=== PATIENT | male | born 1965 | race Caucasian/White ===

== ENCOUNTER 2017-07-27 20:22 | Inpatient (IN) | payer BC ==
[2017-07-27] MEDS ORDERED: methylPREDNISolone Sodium Succinate 125 MG/2 ML SDV IVPUSH ONE (20:45)
[2017-07-27] MEDS ORDERED: Sodium Chloride 0.9% 1,000 ML IV ONE (20:45)
[2017-07-27] MEDS ORDERED: Sodium Chloride 0.9% 10 ML Syringe FLUSH PRN (20:45)
[2017-07-27] MEDS ORDERED: Acetaminophen 500 MG Tab PO ONE (20:45)
[2017-07-27] MEDS ORDERED: Sodium Chloride 0.9% 2.5 ML Syringe FLUSH PRN (20:45)
[2017-07-27] MEDS ORDERED: Albuterol/Ipratropium 3.0-0.5 MG/3 ML Neb Soln NEB ONE (20:45)
--- NOTE | 2017-07-27 20:49 | EDM.PDOC ---
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 The patient says that he was treating his symptoms with his inhaler and he does have a nebulizer machine but it is at home in [place]. The patient says he has had pneumonia multiple times and has a "bad lung on the right". The patient still smokes cigarettes and says that he feels significant only worse starting today. Is been eating and drinking but admits he does drink a lot of caffeine. He has no cardiac history no chest pain per se but feels like he can't get much air and when he coughs it is very discomforting. The patient says he did get his flu shot this year. He has no leg pain or swelling. The patient did not take any medications for his fever Review of systems: As per history of present illness and below otherwise all systems reviewed and negative. Past medical history: As per history of present illness and as reviewed below otherwise noncontributory. Surgical history: As per history of present illness and as reviewed below otherwise noncontributory. Social history: No reported history of drug or alcohol abuse. Family history: As per history of present illness and as reviewed below otherwise noncontributory. Physical exam: General: Well-developed well-nourished male who is nontoxic and seems somewhat exaggerated with his breathing on my evaluation and vital signs were noted by me. HEENT: Atraumatic, normocephalic, pupils reactive, negative for conjunctival pallor or scleral icterus, mucous membranes tacky throat clear, neck supple, nontender, trachea midline. Lungs: Very diminished bilaterally with occasional wheezing and rhonchi heard at the bases but there is more diminished breath sounds in the left base. There is abdominal work of breathing and some breathlessness breath sounds equal bilaterally, chest nontender. Heart: S1S2, regular rate and rhythm no overt murmurs Abdomen: Soft, nondistended, nontender. Bowel sounds are hypoactive and there is some tympany on percussion but no rebound guarding or tenderness. Negative for masses or hepatosplenomegaly. Negative for costovertebral tenderness. Pelvis: Stable nontender. Genitourinary: Deferred. Rectal: Deferred. Extremities: Atraumatic, negative for cords or calf pain. Neurovascular unremarkable. No pedal edema Neuro: Awake, alert, oriented. Cranial nerves II through XII unremarkable. Cerebellum unremarkable. Motor and sensory unremarkable throughout. Exam nonfocal. Diagnostics: EKG CBC CMP lactic acid influenza chest x-ray blood cultures Therapeutics: IV O2 monitor DuoNeb Solu-Medrol Tylenol IV fluids Levaquin Reevaluation after the nebs and medications patient is moving air much better and is not exhibiting any wheezing but is still somewhat tight. He says he still feels short of breath with any activity. His fever has improved. I discussed with him testing results and will also give him a dose of Levaquin and talk to Dr. Thayer about observation for COPD exacerbation and early left pneumonia 2255: Case was discussed with Dr. Thayer who agrees for observation admission Impression: COPD exacerbation/early left pneumonia Definitive disposition and diagnosis as appropriate pending reevaluation and review of above generalized Pain Score (Numeric/FACES): 8 - Related Data Allergies Allergy/AdvReac Type Severity Reaction Status Date / Time hydrocodone Allergy Other Verified 07/27/17 20:37 Home Meds: Home Meds Budesonide/Formoterol Fumarate [Symbicort 160-4.5 Mcg Inhaler] 1 puff IH DAILY 07/27/17 [History] FLUoxetine [PROzac] 40 mg PO DAILY 07/27/17 [History] Fluticasone Propionate [Flonase Allergy Relief] 9.9 ml NS DAILY 07/27/17 [ History] Fluticasone/Vilanterol [Breo Ellipta 100-25 MCG Inhalation Kit] 1 each IH DAILY 07/27/17 [History] Lisinopril 20 mg PO DAILY 07/27/17 [History] ED ROS GENERAL - Review of Systems Review Of Systems: ROS reveals no pertinent complaints other than HPI. ED EXAM, GENERAL - Physical Exam Exam: See Below (See dictation) Course - Vital Signs Last Recorded V/S: Last Vital Signs Temp 36.9 C 07/27/17 22:56 Pulse 84 04/05/18 22:56 Resp 20 07/27/17 22:56 BP 113/52 L 07/27/17 22:56 Pulse Ox 97 07/27/17 22:56 - Orders/Labs/Meds Orders: Active Orders 24 hr Category Date Time Status Patient Status [ADT] Stat ADT 07/27/17 23:02 Ordered Cardiac Monitoring [RC] . DIRECTED Care 07/27/17 20:45 Active EKG Documentation Completion [RC] STAT Care 07/27/17 20:45 Active Oxygen Therapy, ED [RC] ASDIRECTED Care 07/27/17 20:45 Active Pulse Oximetry [RC] ASDIRECTED Care 07/27/17 20:45 Active RT Aerosol Therapy [RC] ASDIRECTED Care 07/27/17 20:46 Active Chest 1V Frontal [CR] Stat Exams 07/27/17 20:45 Taken CULTURE BLOOD [BC] Stat Lab 07/27/17 20:54 Received CULTURE BLOOD [BC] Stat Lab 07/27/17 21:15 Received INFLUENZA A+B AG SCREEN [RM] Stat Lab 07/27/17 21:20 Ordered Levofloxacin/Dextrose 5%-Water [Levaquin in D5W 750 MG/ Med 07/27/17 22:48 Active 150 ML] 750 mg Premix Bag 1 bag IV ONETIME Sodium Chloride 0.9% [Saline Flush] Med 07/27/17 20:45 Active 10 ml FLUSH ASDIRECTED PRN Sodium Chloride 0.9% [Saline Flush] Med 07/27/17 20:45 Active 2.5 ml FLUSH ASDIRECTED PRN Blood Culture x2 Reflex Set [OM.PC] Stat Oth 07/27/17 20:45 Ordered Saline Lock Insert [OM.PC] Stat Oth 07/27/17 20:45 Ordered Medication Orders Levofloxacin/Dextrose 750 mg/ (Premix) 150 mls @ 100 mls/hr IV ONETIME ONE Stop: 07/28/17 00:17 Last Admin: 07/27/17 22:58 Dose: 100 mls/hr Sodium Chloride (Saline Flush) 10 ml FLUSH ASDIRECTED PRN PRN Reason: Keep Vein Open Sodium Chloride (Saline Flush) 2.5 ml FLUSH ASDIRECTED PRN PRN Reason: Keep Vein Open Labs: Laboratory Tests 0407/27/17 07/27/17 Range/Units 20:54 20:54 20:54 WBC 16.08 H (4.0-11.0) K/uL RBC 4.36 L (4.50-5.90) M/uL Hgb 13.7 (13.0-17.0) g/dL Hct 40.1 (38.0-50.0) % MCV 92.0 (80.0-98.0) fL MCH 31.4 (27.0-32.0) pg MCHC 34.2 (31.0-37.0) g/dL RDW Std Deviation 47.5 (28.0-62.0) fl RDW Coeff of Danny 14 (11.0-15.0) % Plt Count 209 (150-400) K/uL MPV 11.00 (7.40-12.00) fL Neut % (Auto) 80.2 H (48.0-80.0) % Lymph % (Auto) 10.3 L (16.0-40.0) % [place] % (Auto) 9.0 (0.0-15.0) % Eos % (Auto) 0.4 (0.0-7.0) % Baso % (Auto) 0.1 (0.0-1.5) % Neut # (Auto) 12.9 H (1.4-5.7) K/uL Lymph # (Auto) 1.7 (0.6-2.4) K/uL [place] # (Auto) 1.5 H (0.0-0.8) K/uL Eos # (Auto) 0.1 (0.0-0.7) K/uL Baso # (Auto) 0.0 (0.0-0.1) K/uL Nucleated RBC % 0.0 /100WBC Nucleated RBCs # 0 K/uL Lactate 1.6 (0.20-2.00) mmol/L Sodium 137 (136-148) mmol/L Potassium 3.8 (3.5-5.1) mmol/L Chloride 104 (98-107) mmol/L Carbon Dioxide 21.5 (21.0-32.0) mmol/L BUN 14 (7.0-18.0) mg/dL Creatinine 1.2 (0.8-1.3) mg/dL Est Cr Clr Drug Dosing TNP Estimated GFR (MDRD) > 60.0 ml/min Glucose 115 H (74-106) mg/dL Calcium 9.0 (8.5-10.1) mg/dL Total Bilirubin 0.4 (0.2-1.0) mg/dL AST 23 (15-37) IU/L ALT 24 (14-63) IU/L Alkaline Phosphatase 73 (46-116) U/L Total Protein 7.2 (6.4-8.2) g/dL Albumin 3.4 (3.4-5.0) g/dL Globulin 3.8 H (2.0-3.5) g/dL Albumin/Globulin Ratio 0.9 L (1.3-2.8) Meds: Medications Generic Name Dose Route Start Last Admin Trade Name Freq PRN Reason Stop Dose Admin Levofloxacin/Dextrose 750 mg/ 150 mls @ 100 mls/hr 07/27/17 22:48 07/27/17 22 :58 Premix IV 07/28/17 00:17 100 mls/hr ONETIME ONE Administration Sodium Chloride 10 ml 07/27/17 20:45 Saline Flush FLUSH ASDIRECTED PRN Keep Vein Open Sodium Chloride 2.5 ml 07/27/17 20:45 Saline Flush FLUSH ASDIRECTED PRN Keep Vein Open Discontinued Medications Generic Name Dose Route Start Last Admin Trade Name Hieuq PRN Reason Stop Dose Admin Acetaminophen 1,000 mg 07/27/17 20:45 07/27/17 21:20 Tylenol Extra Strength PO 07/27/17 20:46 1,000 mg ONETIME ONE Administration Albuterol/Ipratropium 3 ml 07/27/17 20:45 07/27/17 21:20 Duoneb 3.0-0.5 Mg/3 Ml NEB 07/27/17 20:46 3 ml ONETIME ONE Administration Sodium Chloride 1,000 mls @ 999 mls/hr 07/27/17 20:45 07/27/17 21:19 Normal Saline IV 07/27/17 21:45 999 mls/hr STAT ONE Administration Methylprednisolone Sodium Succinate 125 mg 07/27/17 20:45 07/27/17 21:20 Solu-Medrol IVPUSH 07/27/17 20:46 125 mg ONETIME ONE Administration Departure - Departure Time of Disposition: 23:04 Disposition: Refer to Observation Condition: Good Clinical Impression: COPD exacerbation, Pneumonia - Discharge Information Referrals: PCP,None [Primary Care Provider] - Forms: ED Department Discharge - My Orders Last 24 Hours: My Active Orders 07/27/17 20:45 Cardiac Monitoring [RC] . DIRECTED EKG Documentation Completion [RC] STAT Oxygen Therapy, ED [RC] ASDIRECTED Pulse Oximetry [RC] ASDIRECTED Chest 1V Frontal [CR] Stat Sodium Chloride 0.9% [Saline Flush] 10 ml FLUSH ASDIRECTED PRN Sodium Chloride 0.9% [Saline Flush] 2.5 ml FLUSH ASDIRECTED PRN Blood Culture x2 Reflex Set [OM.PC] Stat Saline Lock Insert [OM.PC] Stat 07/27/17 20:46 RT Aerosol Therapy [RC] ASDIRECTED 07/27/17 20:54 CULTURE BLOOD [BC] Stat 07/27/17 21:15 CULTURE BLOOD [BC] Stat 07/27/17 21:20 INFLUENZA A+B AG SCREEN [RM] Stat 07/27/17 22:48 Levofloxacin/Dextrose 5%-Water [Levaquin in D5W 750 MG/150 ML] 750 mg Premix Bag 1 bag IV ONETIME 07/27/17 23:02 Patient Status [ADT] Stat - Assessment/Plan Last 24 Hours: My Active Orders 07/27/17 20:45 Cardiac Monitoring [RC] . DIRECTED EKG Documentation Completion [RC] STAT Oxygen Therapy, ED [RC] ASDIRECTED Pulse Oximetry [RC] ASDIRECTED Chest 1V Frontal [CR] Stat Sodium Chloride 0.9% [Saline Flush] 10 ml FLUSH ASDIRECTED PRN Sodium Chloride 0.9% [Saline Flush] 2.5 ml FLUSH ASDIRECTED PRN Blood Culture x2 Reflex Set [OM.PC] Stat Saline Lock Insert [OM.PC] Stat 07/27/17 20:46 RT Aerosol Therapy [RC] ASDIRECTED 07/27/17 20:54 CULTURE BLOOD [BC] Stat 07/27/17 21:15 CULTURE BLOOD [BC] Stat 07/27/17 21:20 INFLUENZA A+B AG SCREEN [RM] Stat 07/27/17 22:48 Levofloxacin/Dextrose 5%-Water [Levaquin in D5W 750 MG/150 ML] 750 mg Premix Bag 1 bag IV ONETIME 07/27/17 23:02 Patient Status [ADT] Stat
[2017-07-27 21:26] LABS: CHLORIDE,CL 104 mmol/L (98-107); SODIUM,NA 137 mmol/L (136-148)
[2017-07-27] MEDS ORDERED: Levofloxacin/Dextrose 5%-Water 750 MG in Premix Bag 1 BAG IV ONE (22:48)
--- NOTE | 2017-07-27 23:28 | PCM.HP ---
H&P History of Present Illness - General Admit Problem/Dx: Admission Diagnosis/Problem Admission Diagnosis/Problem Pneumonia - History of Present Illness Initial Comments - Free Text/Narative: 52 yo male smoker who presents with several week history of sinus congestion and several day history of chest congestion. He has a one day history of subjective fevers and chills. generalized Pain Score (Numeric/FACES): 8 - Related Data Allergies/Adverse Reactions: Allergies Allergy/AdvReac Type Severity Reaction Status Date / Time hydrocodone Allergy Other Verified 07/27/17 20:37 Home Medications: Home Meds Budesonide/Formoterol Fumarate [Symbicort 160-4.5 Mcg Inhaler] 1 puff IH DAILY 07/27/17 [History] FLUoxetine [PROzac] 40 mg PO DAILY 07/27/17 [History] Fluticasone Propionate [Flonase Allergy Relief] 9.9 ml NS DAILY 07/27/17 [ History] Fluticasone/Vilanterol [Breo Ellipta 100-25 MCG Inhalation Kit] 1 each IH DAILY 07/27/17 [History] Lisinopril 20 mg PO DAILY 07/27/17 [History] Past Medical History HEENT History: Reports: None Cardiovascular History: Reports: Hypertension Respiratory History: Reports: COPD, Pneumonia, Recurrent Gastrointestinal History: Reports: None Genitourinary History: Reports: None Musculoskeletal History: Reports: None Neurological History: Reports: None Psychiatric History: Reports: Anxiety, Depression Endocrine/Metabolic History: Reports: None Hematologic History: Reports: None Immunologic History: Reports: None Oncologic (Cancer) History: Reports: None Dermatologic History: Reports: None - Infectious Disease History Infectious Disease History: Reports: None - Past Surgical History Head Surgeries/Procedures: Reports: None Musculoskeletal Surgical History: Reports: Other (See Below) Other Musculoskeletal Surgeries/Procedures:: knee surgery Social & Family History - Family History Family Medical History: Noncontributory - Tobacco Use Smoking Status *Q: Current Every Day Smoker Years of Tobacco use: 36 Packs/Tins Daily: 1 - Caffeine Use Caffeine Use: Reports: Coffee - Recreational Drug Use Recreational Drug Use: No H&P Review of Systems - Review of Systems: Review Of Systems: ROS reveals no pertinent complaints other than HPI. Exam - Exam Exam: See Below - Vital Signs Vital Signs: Last Vital Signs Temp 36.9 C 07/27/17 22:56 Pulse 84 07/27/17 22:56 Resp 20 07/27/17 22:56 BP 113/52 L 07/27/17 22:56 Pulse Ox 97 07/27/17 22:56 Weight: 89.358 kg - Exam General: Alert, Oriented HEENT: Mucosa Moist & [place] Neck: Supple, Trachea Midline Lungs: Clear to Auscultation, Normal Respiratory Effort Cardiovascular: Regular Rate, Regular Rhythm GI/Abdominal Exam: Normal Bowel Sounds, Soft, Non-Tender Extremities: Normal Range of Motion, Non-Tender Skin: Warm, Dry, Intact - Patient Data Lab Results Last 24 hrs: Laboratory Results - last 24 hr 07/27/17 07/27/17 07/27/17 Range/Units 20:54 20:54 20:54 WBC 16.08 H (4.0-11.0) K/uL RBC 4.36 L (4.50-5.90) M/uL Hgb 13.7 (13.0-17.0) g/dL Hct 40.1 (38.0-50.0) % MCV 92.0 (80.0-98.0) fL MCH 31.4 (27.0-32.0) pg MCHC 34.2 (31.0-37.0) g/dL RDW Std Deviation 47.5 (28.0-62.0) fl RDW Coeff of Danny 14 (11.0-15.0) % Plt Count 209 (150-400) K/uL MPV 11.00 (7.40-12.00) fL Neut % (Auto) 80.2 H (48.0-80.0) % Lymph % (Auto) 10.3 L (16.0-40.0) % [place] % (Auto) 9.0 (0.0-15.0) % Eos % (Auto) 0.4 (0.0-7.0) % Baso % (Auto) 0.1 (0.0-1.5) % Neut # (Auto) 12.9 H (1.4-5.7) K/uL Lymph # (Auto) 1.7 (0.6-2.4) K/uL [place] # (Auto) 1.5 H (0.0-0.8) K/uL Eos # (Auto) 0.1 (0.0-0.7) K/uL Baso # (Auto) 0.0 (0.0-0.1) K/uL Nucleated RBC % 0.0 /100WBC Nucleated RBCs # 0 K/uL Lactate 1.6 (0.20-2.00) mmol/L Sodium 137 (136-148) mmol/L Potassium 3.8 (3.5-5.1) mmol/L Chloride 104 (98-107) mmol/L Carbon Dioxide 21.5 (21.0-32.0) mmol/L BUN 14 (7.0-18.0) mg/dL Creatinine 1.2 (0.8-1.3) mg/dL Est Cr Clr Drug Dosing TNP Estimated GFR (MDRD) > 60.0 ml/min Glucose 115 H (74-106) mg/dL Calcium 9.0 (8.5-10.1) mg/dL Total Bilirubin 0.4 (0.2-1.0) mg/dL AST 23 (15-37) IU/L ALT 24 (14-63) IU/L Alkaline Phosphatase 73 (46-116) U/L Total Protein 7.2 (6.4-8.2) g/dL Albumin 3.4 (3.4-5.0) g/dL Globulin 3.8 H (2.0-3.5) g/dL Albumin/Globulin Ratio 0.9 L (1.3-2.8) Result Diagrams: 07/27/17 20:54 07/27/17 20:54 [place] Results Last 24 hrs: Microbiology 07/27/17 21:20 Influenza Type A Antigen Screen - Final Nasopharyngeal Swab NEGATIVE INFLUENZA A VIRUS AG Influenza Type B Antigen Screen - Final NEGATIVE INFLUENZA B VIRUS AG Imaging Impressions Last 24 hrs: CXR: left perihilar infiltrates Problem List Initiated/Reviewed/Updated: Yes Orders Last 24hrs: Active Orders 24 hr Category Date Time Status Patient Status [ADT] Routine ADT 07/27/17 23:16 Ordered Cardiac Monitoring [RC] . DIRECTED Care 07/27/17 20:45 Active EKG Documentation Completion [RC] STAT Care 07/27/17 20:45 Active Oxygen Therapy [RC] PRN Care 07/27/17 23:16 Ordered Oxygen Therapy, ED [RC] ASDIRECTED Care 07/27/17 20:45 Active Pulse Oximetry [RC] ASDIRECTED Care 07/27/17 20:45 Active RT Aerosol Therapy [RC] ASDIRECTED Care 07/27/17 20:46 Active RT Aerosol Therapy [RC] ASDIRECTED Care 07/27/17 23:17 Ordered Up ad Cora [RC] ASDIRECTED Care 07/27/17 23:16 Ordered VTE/DVT Education [RC] PER UNIT ROUTINE Care 07/27/17 23:16 Ordered Vital Signs [RC] Q4H Care 07/27/17 23:16 Ordered Regular Diet [DIET] Diet 07/27/17 Breakfast Ordered Chest 1V Frontal [CR] Stat Exams 07/27/17 20:45 Taken BASIC METABOLIC PANEL,BMP [CHEM] AM Lab 07/28/17 05:11 Ordered CBC WITH AUTO DIFF [HEME] AM Lab 07/28/17 05:11 Ordered CULTURE BLOOD [BC] Stat Lab 07/27/17 20:54 Received CULTURE BLOOD [BC] Stat Lab 07/27/17 21:15 Received CULTURE SPUTUM + SMEAR [RM] Routine Lab 07/27/17 23:20 Ordered INFLUENZA A+B AG SCREEN [RM] Stat Lab 07/27/17 21:20 Ordered Acetaminophen [Tylenol] Med 07/27/17 23:16 Ordered 650 mg PO Q4H PRN Albuterol/Ipratropium [DuoNeb 3.0-0.5 MG/3 ML] Med 07/27/17 23:16 Ordered 3 ml NEB Q4HRRT PRN Levofloxacin/Dextrose 5%-Water [Levaquin in D5W 750 MG/ Med 07/27/17 22:48 Active 150 ML] 750 mg Premix Bag 1 bag IV ONETIME Levofloxacin/Dextrose 5%-Water [Levaquin in D5W 750 MG/ Med 07/28/17 23:30 Ordered 150 ML] 750 mg Premix Bag 1 bag IV Q24H Sodium Chloride 0.9% @ 125 MLS/HR (1000ml) Med 07/27/17 23:30 Ordered Sodium Chloride 0.9% [Normal Saline] 1,000 ml IV ASDIRECTED Sodium Chloride 0.9% [Saline Flush] Med 07/27/17 20:45 Active 10 ml FLUSH ASDIRECTED PRN Sodium Chloride 0.9% [Saline Flush] Med 07/27/17 20:45 Active 2.5 ml FLUSH ASDIRECTED PRN Blood Culture x2 Reflex Set [OM.PC] Stat Oth 07/27/17 20:45 Ordered Saline Lock Insert [OM.PC] Stat Oth 07/27/17 20:45 Ordered Sequential Compression Device [OM.PC] Per Unit Routine Oth 07/27/17 23:16 Ordered Resuscitation Status Routine Resus Stat 07/27/17 23:16 Ordered Medication Orders Levofloxacin/Dextrose 750 mg/ (Premix) 150 mls @ 100 mls/hr IV ONETIME ONE Stop: 07/28/17 00:17 Last Admin: 07/27/17 22:58 Dose: 100 mls/hr Sodium Chloride (Saline Flush) 10 ml FLUSH ASDIRECTED PRN PRN Reason: Keep Vein Open Sodium Chloride (Saline Flush) 2.5 ml FLUSH ASDIRECTED PRN PRN Reason: Keep Vein Open Assessment/Plan Comment:: 52 yo male admitted for community acquired pneumonia. We will treat with Levaquin and duonebs for reactive airway disease. Cultures are pending.
[2017-07-27] MEDS ORDERED: Sodium Chloride 0.9% 1,000 ML IV SCH (23:30)
[2017-07-28] MEDS: Acetaminophen 325 MG Tab PO PRN ×2 (00:52→15:18)
[2017-07-28] MEDS: Enoxaparin 40 MG/0.4 ML Syringe SUBCUT SCH ×2 (00:52→23:07)
[2017-07-28] MEDS: Albuterol/Ipratropium 3.0-0.5 MG/3 ML Neb Soln NEB PRN ×2 (04:10→15:15)
[2017-07-28 05:42] LABS: CHLORIDE,CL 106 mmol/L (98-107); SODIUM,NA 138 mmol/L (136-148)
[2017-07-28] MEDS: FLUoxetine 20 MG Cap PO SCH (08:47)
[2017-07-28] MEDS: Lisinopril 10 MG Tab PO SCH (08:48)
[2017-07-28] MEDS ORDERED: [UNRECOGNIZED DRUG - REMARK] NS SCH (09:00)
[2017-07-28] MEDS: FLUTICASONE INH SCH (09:29)
[2017-07-28] MEDS: VILANTEROL INH SCH (09:29)
[2017-07-28] MEDS: Budesonide/Formoterol Fumarate [Symbicort 160-4.5 Mcg Inh INH SCH (09:29)
--- NOTE | 2017-07-28 10:07 | PCM.PN ---
- General Info Date of Service: 07/28/17 Admission Dx/Problem (Free Text): Admission Diagnosis/Problem Admission Diagnosis/Problem Pneumonia Subjective Update: Feeling a little better this morning. Dyspnea has improved. No chest pain. Cough continues, but is non productive. No other complaints. Functional Status: Reports: Pain Controlled, Tolerating Diet, Ambulating, Urinating - Review of Systems General: Reports: Malaise. Denies: Fever HEENT: Reports: Sinus Congestion Pulmonary: Reports: Shortness of Breath (intermittent, but improved.), Cough. Denies: Sputum Cardiovascular: Reports: No Symptoms. Denies: Chest Pain, Palpitations, Orthopnea, Edema Gastrointestinal: Reports: No Symptoms. Denies: Abdominal Pain, Nausea, Vomiting Genitourinary: Reports: No Symptoms. Denies: Dysuria, Frequency, Burning Musculoskeletal: Reports: No Symptoms Skin: Reports: No Symptoms Neurological: Reports: No Symptoms Psychiatric: Reports: No Symptoms - Patient Data Vitals - Most Recent: Last Vital Signs Temp 97.9 F 07/28/17 04:00 Pulse 83 07/28/17 04:00 Resp 18 07/28/17 04:00 BP 135/68 07/28/17 08:48 Pulse Ox 99 07/28/17 04:00 Weight - Most Recent: 95.209 kg I&O - Last 24 Hours: Intake & Output 07/27/17 07/28/17 07/28/17 22:59 06:59 14:59 Intake Total 300 Output Total 950 Balance -650 Lab Results Last 24 Hours: Laboratory Results - last 24 hr 07/27/17 07/27/17 07/27/17 Range/Units 20:54 20:54 20:54 WBC 16.08 H (4.0-11.0) K/uL RBC 4.36 L (4.50-5.90) M/uL Hgb 13.7 (13.0-17.0) g/dL Hct 40.1 (38.0-50.0) % MCV 92.0 (80.0-98.0) fL MCH 31.4 (27.0-32.0) pg MCHC 34.2 (31.0-37.0) g/dL RDW Std Deviation 47.5 (28.0-62.0) fl RDW Coeff of Danny 14 (11.0-15.0) % Plt Count 209 (150-400) K/uL MPV 11.00 (7.40-12.00) fL Neut % (Auto) 80.2 H (48.0-80.0) % Lymph % (Auto) 10.3 L (16.0-40.0) % [place] % (Auto) 9.0 (0.0-15.0) % Eos % (Auto) 0.4 (0.0-7.0) % Baso % (Auto) 0.1 (0.0-1.5) % Neut # (Auto) 12.9 H (1.4-5.7) K/uL Lymph # (Auto) 1.7 (0.6-2.4) K/uL [place]ble # (Auto) 1.5 H (0.0-0.8) K/uL Eos # (Auto) 0.1 (0.0-0.7) K/uL Baso # (Auto) 0.0 (0.0-0.1) K/uL Nucleated RBC % 0.0 /100WBC Nucleated RBCs # 0 K/uL Lactate 1.6 (0.20-2.00) mmol/L Sodium 137 (136-148) mmol/L Potassium 3.8 (3.5-5.1) mmol/L Chloride 104 (98-107) mmol/L Carbon Dioxide 21.5 (21.0-32.0) mmol/L BUN 14 (7.0-18.0) mg/dL Creatinine 1.2 (0.8-1.3) mg/dL Est Cr Clr Drug Dosing TNP Estimated GFR (MDRD) > 60.0 ml/min Glucose 115 H (74-106) mg/dL Calcium 9.0 (8.5-10.1) mg/dL Total Bilirubin 0.4 (0.2-1.0) mg/dL AST 23 (15-37) IU/L ALT 24 (14-63) IU/L Alkaline Phosphatase 73 (46-116) U/L Total Protein 7.2 (6.4-8.2) g/dL Albumin 3.4 (3.4-5.0) g/dL Globulin 3.8 H (2.0-3.5) g/dL Albumin/Globulin Ratio 0.9 L (1.3-2.8) 07/28/17 07/28/17 Range/Units 04:37 04:37 WBC 13.65 H (4.0-11.0) K/uL RBC 4.25 L (4.50-5.90) M/uL Hgb 13.4 (13.0-17.0) g/dL Hct 39.6 (38.0-50.0) % MCV 93.2 (80.0-98.0) fL MCH 31.5 (27.0-32.0) pg MCHC 33.8 (31.0-37.0) g/dL RDW Std Deviation 48.4 (28.0-62.0) fl RDW Coeff of Danny 14 (11.0-15.0) % Plt Count 195 (150-400) K/uL MPV 11.60 (7.40-12.00) fL Neut % (Auto) 92.2 H (48.0-80.0) % Lymph % (Auto) 6.4 L (16.0-40.0) % [place] % (Auto) 1.4 (0.0-15.0) % Eos % (Auto) 0.0 (0.0-7.0) % Baso % (Auto) 0.0 (0.0-1.5) % Neut # (Auto) 12.6 H (1.4-5.7) K/uL Lymph # (Auto) 0.9 (0.6-2.4) K/uL [place] # (Auto) 0.2 (0.0-0.8) K/uL Eos # (Auto) 0.0 (0.0-0.7) K/uL Baso # (Auto) 0.0 (0.0-0.1) K/uL Nucleated RBC % 0.0 /100WBC Nucleated RBCs # 0 K/uL Lactate (0.20-2.00) mmol/L Sodium 138 (136-148) mmol/L Potassium 4.2 (3.5-5.1) mmol/L Chloride 106 (98-107) mmol/L Carbon Dioxide 21.4 (21.0-32.0) mmol/L BUN 12 (7.0-18.0) mg/dL Creatinine 1.2 (0.8-1.3) mg/dL Est Cr Clr Drug Dosing 78.25 Estimated GFR (MDRD) > 60.0 ml/min Glucose 182 H (74-106) mg/dL Calcium 8.6 (8.5-10.1) mg/dL Total Bilirubin (0.2-1.0) mg/dL AST (15-37) IU/L ALT (14-63) IU/L Alkaline Phosphatase (46-116) U/L Total Protein (6.4-8.2) g/dL Albumin (3.4-5.0) g/dL Globulin (2.0-3.5) g/dL Albumin/Globulin Ratio (1.3-2.8) Davie Results Last 24 Hours: Microbiology 07/27/17 21:20 Influenza Type A Antigen Screen - Final Nasopharyngeal Swab NEGATIVE INFLUENZA A VIRUS AG Influenza Type B Antigen Screen - Final NEGATIVE INFLUENZA B VIRUS AG Med Orders - Current: Current Medications Acetaminophen (Tylenol) 650 mg PO Q4H PRN PRN Reason: Pain (Mild 1-3)/fever Last Admin: 07/28/17 00:52 Dose: 650 mg Albuterol/Ipratropium (Duoneb 3.0-0.5 Mg/3 Ml) 3 ml NEB Q4HRRT PRN PRN Reason: Shortness Of Breath/wheezing Last Admin: 07/28/17 04:10 Dose: 3 ml Enoxaparin Sodium (Lovenox) 40 mg SUBCUT Q24H [facility] Last Admin: 07/28/17 00:52 Dose: 40 mg Fluoxetine HCl (Prozac) 40 mg PO DAILY [facility] Last Admin: 07/28/17 08:47 Dose: 40 mg Levofloxacin/Dextrose 750 mg/ (Premix) 150 mls @ 100 mls/hr IV Q24H [facility] Lisinopril (Prinivil) 20 mg PO DAILY [facility] Last Admin: 07/28/17 08:48 Dose: 20 mg Non-Formulary Medication (Fluticasone Propionate [Flonase Allergy Relief]) 9.9 ml NS DAILY [facility] Budesonide/Formoterol Fumarate [Symbicort 160-4.5 Mcg Inh 0 each INH DAILY [facility]AN[facility] Last Admin: 07/28/17 09:29 Dose: 2 each Fluticasone/Vilanterol (Breo Ellipta) 0 each INH DAILY [facility] Last Admin: 07/28/17 09:29 Dose: 1 each Sodium Chloride (Saline Flush) 10 ml FLUSH ASDIRECTED PRN PRN Reason: Keep Vein Open Sodium Chloride (Saline Flush) 2.5 ml FLUSH ASDIRECTED PRN PRN Reason: Keep Vein Open Discontinued Medications Acetaminophen (Tylenol Extra Strength) 1,000 mg PO ONETIME ONE Stop: 07/27/17 20:46 Last Admin: 07/27/17 21:20 Dose: 1,000 mg Albuterol/Ipratropium (Duoneb 3.0-0.5 Mg/3 Ml) 3 ml NEB ONETIME ONE Stop: 07/27/17 20:46 Last Admin: 07/27/17 21:20 Dose: 3 ml Sodium Chloride (Normal Saline) 1,000 mls @ 999 mls/hr IV STAT ONE Stop: 07/27/17 21:45 Last Admin: 07/27/17 21:19 Dose: 999 mls/hr Levofloxacin/Dextrose 750 mg/ (Premix) 150 mls @ 100 mls/hr IV ONETIME ONE Stop: 07/28/17 00:17 Last Admin: 07/27/17 22:58 Dose: 100 mls/hr Sodium Chloride (Normal Saline) 1,000 mls @ 125 mls/hr IV ASDIRECTED [facility]AN[facility]EP Last Admin: 07/28/17 00:55 Dose: 125 mls/hr Methylprednisolone Sodium Succinate (Solu-Medrol) 125 mg IVPUSH ONETIME ONE Stop: 07/27/17 20:46 Last Admin: 07/27/17 21:20 Dose: 125 mg - Exam Quality Assessment: Supplemental Oxygen, DVT Prophylaxis General: Alert, Oriented, Cooperative, No Acute Distress Neck: Supple Lungs: Clear to Auscultation, Normal Respiratory Effort. No: Wheezing Cardiovascular: Regular Rate, Regular Rhythm GI/Abdominal Exam: Normal Bowel Sounds, Soft, Non-Tender, No Organomegaly, No Distention, No Abnormal Bruit, No Mass, Pelvis Stable Back Exam: Normal Inspection, Full Range of Motion Extremities: Normal Inspection, Normal Range of Motion, Non-Tender, No Pedal Edema, Normal Capillary Refill Neurological: No New Focal Deficit Psy/Mental Status: Alert, Normal Affect, Normal Mood - Problem List & Annotations (1) Pneumonia SNOMED Code(s): 751568536 Code(s): J18.9 - PNEUMONIA, UNSPECIFIED ORGANISM Status: Acute Current Visit: Yes Qualifiers: Pneumonia type: due to unspecified organism Laterality: left (2) Reactive airway disease with acute exacerbation SNOMED Code(s): 586402850256 Code(s): J45.901 - UNSPECIFIED ASTHMA WITH (ACUTE) EXACERBATION Status: Acute Current Visit: Yes Qualifiers: Asthma severity: mild Asthma persistence: persistent Qualified Code(s): J45.31 - Mild persistent asthma with (acute) exacerbation (3) HTN (hypertension) SNOMED Code(s): 80734537 Code(s): I10 - ESSENTIAL (PRIMARY) HYPERTENSION Status: Chronic Current Visit: Yes Qualifiers: Hypertension type: essential hypertension Qualified Code(s): I10 - Essential (primary) hypertension - Problem List Review Problem List Initiated/Reviewed/Updated: Yes - My Orders Last 24 Hours: My Active Orders 07/28/17 09:00 FLUoxetine [PROzac] 40 mg PO DAILY Fluticasone Propionate [Flonase Allergy Relief] 9.9 ml NS DAILY Lisinopril [Prinivil] 20 mg PO DAILY Patient's Own Medication [Ptom] 0 each INH DAILY Patient's Own Medication [Ptom] 0 each INH DAILY - Plan Plan:: 52 yo male admitted for community acquired pneumonia. 1. CAP: Improving. still has some dyspnea. Continue Levaquin. 2. Reactive airway disease: Improving. Will restart home inhalers. Continue Duonebs. VTE prophylaxis: Lovenox Dispo: Tomorrow. 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 This was his last stop and he will be heading back to [place] upon discharge and feels he needs one more day to be able to drive safely.
--- NOTE | 2017-07-28 14:32 | CR ---
EXAM DATE: 07/27/17 PATIENT'S AGE: 52 Patient: ESTELA CASTELLANO Facility: [place], [place] Site . Site : [id number] Study: XRay Chest [id number] 10:25:50 PM Ordering Physician: Doctor Enrique Final Report: INDICATION: dyspnea, radha LE numbness TECHNIQUE: Chest 1 view COMPARISON: None FINDINGS: Cardiovascular and mediastinum: Heart size and vasculature are normal in caliber and appearance. Mediastinum is within normal limits. Lungs and pleural space: Questionable left infrahilar stranding. No sign of pleural effusion. No pneumothorax. Bones and soft tissues: No significant findings. IMPRESSION: Questionable left infrahilar stranding. Consider short-term follow-up PA and lateral chest radiograph. . Dictated by Daniel Gaytan MD @ 07/27/2017 10:36:58 PM Dictated by: Daniel Gaytan MD @ 07/27/2017 22:37:12 (Electronic Signature) Report Signed by Proxy. MARGIE
[2017-07-28] MEDS ORDERED: Levofloxacin/Dextrose 5%-Water 750 MG in Premix Bag 1 BAG IV SCH (23:30)
[2017-07-29] MEDS: Albuterol/Ipratropium 3.0-0.5 MG/3 ML Neb Soln NEB PRN (04:19)
[2017-07-29] MEDS: Acetaminophen 325 MG Tab PO PRN (04:25)
[2017-07-29 06:48] LABS: CHLORIDE,CL 107 mmol/L (98-107); SODIUM,NA 139 mmol/L (136-148)
[2017-07-29] MEDS: FLUoxetine 20 MG Cap PO SCH (09:48)
[2017-07-29] MEDS: Lisinopril 10 MG Tab PO SCH (09:48)
[2017-07-29] MEDS: Budesonide/Formoterol Fumarate [Symbicort 160-4.5 Mcg Inh INH SCH (09:56)
[2017-07-29] MEDS: FLUTICASONE INH SCH (09:57)
[2017-07-29] MEDS: VILANTEROL INH SCH (09:57)
--- NOTE | 2017-07-29 14:26 | PCM.DCSUM1 ---
Discharge Summary - Discharge Data Discharge Date: 07/29/17 Discharge Disposition: Home, Self-Care 01 Condition: Good - Patient Summary/Data Hospital Course: 52 yo male who presented with subjective fevers, cough, and myalgias and questionable left infrahilar infiltrate on chest x-ray. He had a white blood cell count of 16,080. He was admitted and treated for pneumonia and treated with Levaquin. Today patient reports symptoms are resolving and he is requesting discharge home. Patient was discharged home on oral Levaquin 750mg daily for seven more days. - Discharge Plan Prescriptions/Med Rec: Levofloxacin [Levaquin] 750 mg PO DAILY #7 tablet Home Medications: Home Meds Budesonide/Formoterol Fumarate [Symbicort 160-4.5 Mcg Inhaler] 1 puff IH DAILY 07/27/17 [History] FLUoxetine [PROzac] 40 mg PO DAILY 07/27/17 [History] Fluticasone Propionate [Flonase Allergy Relief] 2 spray NS DAILY 07/27/17 [ History] Fluticasone/Vilanterol [Breo Ellipta 100-25 MCG Inhalation Kit] 1 each IH DAILY 07/27/17 [History] Lisinopril 20 mg PO DAILY 07/27/17 [History] Levofloxacin [Levaquin] 750 mg PO DAILY #7 tablet 07/29/17 [Rx] Forms: ED Department Discharge Referrals: PCP,None [Primary Care Provider] - - Patient Data Vitals - Most Recent: Last Vital Signs Temp 36.5 C 07/29/17 11:00 Pulse 60 07/29/17 11:00 Resp 16 07/29/17 11:00 BP 132/54 L 07/29/17 11:00 Pulse Ox 98 07/29/17 11:00 Weight - Most Recent: 95.209 kg I&O - Last 24 hours: Intake & Output 07/28/17 07/29/17 07/29/17 22:59 06:59 14:59 Intake Total 340 350 Output Total 1300 1500 Balance -960 -1150 Lab Results - Last 24 hrs: Laboratory Results - last 24 hr 07/29/17 07/29/17 Range/Units 06:01 06:01 WBC 13.56 H (4.0-11.0) K/uL RBC 4.16 L (4.50-5.90) M/uL Hgb 12.9 L (13.0-17.0) g/dL Hct 39.4 (38.0-50.0) % MCV 94.7 (80.0-98.0) fL MCH 31.0 (27.0-32.0) pg MCHC 32.7 (31.0-37.0) g/dL RDW Std Deviation 49.1 (28.0-62.0) fl RDW Coeff of Danny 14 (11.0-15.0) % Plt Count 211 (150-400) K/uL MPV 11.30 (7.40-12.00) fL Neut % (Auto) 69.6 (48.0-80.0) % Lymph % (Auto) 22.9 (16.0-40.0) % Cross % (Auto) 7.2 (0.0-15.0) % Eos % (Auto) 0.2 (0.0-7.0) % Baso % (Auto) 0.1 (0.0-1.5) % Neut # (Auto) 9.4 H (1.4-5.7) K/uL Lymph # (Auto) 3.1 H (0.6-2.4) K/uL Cross # (Auto) 1.0 H (0.0-0.8) K/uL Eos # (Auto) 0.0 (0.0-0.7) K/uL Baso # (Auto) 0.0 (0.0-0.1) K/uL Nucleated RBC % 0.0 /100WBC Nucleated RBCs # 0 K/uL Sodium 139 (136-148) mmol/L Potassium 5.0 (3.5-5.1) mmol/L Chloride 107 (98-107) mmol/L Carbon Dioxide 27.1 (21.0-32.0) mmol/L BUN 17 (7.0-18.0) mg/dL Creatinine 1.1 (0.8-1.3) mg/dL Est Cr Clr Drug Dosing 85.36 mL/min Estimated GFR (MDRD) > 60.0 ml/min Glucose 124 H (74-106) mg/dL Calcium 9.4 (8.5-10.1) mg/dL BRANDT Results - Last 24 hrs: Microbiology 07/28/17 09:02 Gram Stain - Preliminary Sputum - Expectorated 07/27/17 21:15 Aerobic Blood Culture - Preliminary Blood - Venous - Lab Draw NO GROWTH AFTER 1 DAY Anaerobic Blood Culture - Preliminary NO GROWTH AFTER 1 DAY 07/27/17 20:54 Aerobic Blood Culture - Preliminary Blood - Venous NO GROWTH AFTER 1 DAY Anaerobic Blood Culture - Preliminary NO GROWTH AFTER 1 DAY Med Orders - Current: Current Medications Acetaminophen (Tylenol) 650 mg PO Q4H PRN PRN Reason: Pain (Mild 1-3)/fever Last Admin: 07/29/17 04:25 Dose: 650 mg Albuterol/Ipratropium (Duoneb 3.0-0.5 Mg/3 Ml) 3 ml NEB Q4HRRT PRN PRN Reason: Shortness Of Breath/wheezing Last Admin: 07/29/17 04:19 Dose: 3 ml Enoxaparin Sodium (Lovenox) 40 mg SUBCUT Q24H [facility] Last Admin: 07/28/17 23:07 Dose: 40 mg Fluoxetine HCl (Prozac) 40 mg PO DAILY [facility] Last Admin: 07/29/17 09:48 Dose: 40 mg Levofloxacin/Dextrose 750 mg/ (Premix) 150 mls @ 100 mls/hr IV Q24H [facility] Last Admin: 07/28/17 23:07 Dose: 100 mls/hr Lisinopril (Prinivil) 20 mg PO DAILY [facility] Last Admin: 07/29/17 09:48 Dose: 20 mg Non-Formulary Medication (Fluticasone Propionate [Flonase Allergy Relief]) 9.9 ml NS DAILY [facility] Budesonide/Formoterol Fumarate [Symbicort 160-4.5 Mcg Inh 0 each INH DAILY [facility] Last Admin: 07/29/17 09:56 Dose: 1 each Fluticasone/Vilanterol (Breo Ellipta) 0 each INH DAILY [facility] Last Admin: 07/29/17 09:57 Dose: 1 each Sodium Chloride (Saline Flush) 10 ml FLUSH ASDIRECTED PRN PRN Reason: Keep Vein Open Sodium Chloride (Saline Flush) 2.5 ml FLUSH ASDIRECTED PRN PRN Reason: Keep Vein Open Discontinued Medications Acetaminophen (Tylenol Extra Strength) 1,000 mg PO ONETIME ONE Stop: 07/27/17 20:46 Last Admin: 04/05/18 21:20 Dose: 1,000 mg Albuterol/Ipratropium (Duoneb 3.0-0.5 Mg/3 Ml) 3 ml NEB ONETIME ONE Stop: 07/27/17 20:46 Last Admin: 07/27/17 21:20 Dose: 3 ml Sodium Chloride (Normal Saline) 1,000 mls @ 999 mls/hr IV STAT ONE Stop: 07/27/17 21:45 Last Admin: 07/27/17 21:19 Dose: 999 mls/hr Levofloxacin/Dextrose 750 mg/ (Premix) 150 mls @ 100 mls/hr IV ONETIME ONE Stop: 07/28/17 00:17 Last Admin: 07/27/17 22:58 Dose: 100 mls/hr Sodium Chloride (Normal Saline) 1,000 mls @ 125 mls/hr IV ASDIRECTED [facility] Last Admin: 07/28/17 00:55 Dose: 125 mls/hr Methylprednisolone Sodium Succinate (Solu-Medrol) 125 mg IVPUSH ONETIME ONE Stop: 07/27/17 20:46 Last Admin: 07/27/17 21:20 Dose: 125 mg
== END 2017-07-29 16:00 | disposition home or self-care (01) | DRG 139 ==
LOC: MW.ED 20:22 → INTOOBSV 23:02 → OBSVTOIN 23:02 → MW.MS 23:02
PROVIDERS: ADMIT Internal Medicine; ATTEND Internal Medicine
DX: J18.9 Pneumonia, unspecified organism (principal); J45.31 Mild persistent asthma with (acute) exacerbation; F41.8 Other specified anxiety disorders; I10 Essential (primary) hypertension; F17.200 Nicotine dependence, unspecified, uncomplicated; Z88.8 Allergy status to other drugs, medicaments and biological substances; Z79.899 Other long term (current) drug therapy
CPT/HCPCS: 36415; 71045; 71045-26; 80048; 80053; 83605; 85025; 87040; 87070; 87205; 87804; 93005; 94640; 96361; 96365; 96375; 99284; 99285-25; A9270-GY; J1650; J1956; J2930; J7040